=== PATIENT | male | born 1975 | race African-American/Black ===

== ENCOUNTER 2018-12-01 11:38 | Inpatient (IN) | payer OTHER ==
[2018-12-01 13:32] VITALS: BMI 31.4
--- NOTE | 2018-12-01 15:23 | HP ---
CIWA Score Nausea/Vomitin Muscle Tremors: 2 Anxiety: 2 Agitation: 2 Paroxysmal Sweats: 1-Minimal Palms Moist Orientation: 0-Oriented Tacttile Disturbances: 1-Very Mild Itch/Numbness Auditory Disturbances: 1-Very Mild Visual Disturbances: 0-None Headache: 2-Mild CIWA-Ar Total Score: 13 - Admission Criteria OASAS Guidelines: Admission for Medically Managed Detox: Requires at least one of the followin. CIWA greater than 12 2. Seizures within the past 24 hours 3. Delirium tremens within the past 24 hours 4. Hallucinations within the past 24 hours 5. Acute intervention needed for co occurring medical disorder 6. Acute intervention needed for co occurring psychiatric disorder 7. Severe withdrawal that cannot be handled at a lower level of care (continued vomiting, continued diarrhea, abnormal vital signs) requiring intravenous medication and/or fluids 8. Admission ROS S - HPI Chief Complaint: i need help to stop drinking alcohol,cocaine,marijuana and heroin abused Allergies/Adverse Reactions: Allergies Allergy/AdvReac Type Severity Reaction Status Date / Time No Known Allergies Allergy Verified 12/01/18 13:21 History of Present Illness: this 43 years old male with alcohol,cocaine,marijuana dependence,heroin abused, seeking detox,withdrawal symptom, had previous admission in detox,last [facility] in 02/23 but keep relapsing syncope nicotine dependence 1 pack/day,does not want nicotine replacement longest sobriety 4 years plan to go to rehab after detox history of hiv since 1996 and gerd - Ebola screening Have you traveled outside of the country in the last 21 days: No Have you had contact with anyone from an Ebola affected area: No - Review of Systems Constitutional: Chills, Loss of Appetite, Malaise, Night Sweats, Changes in sleep EENT: reports: Tearing, Nose Congestion Respiratory: reports: No Symptoms reported Cardiac: reports: No Symptoms Reported GI: reports: Nausea, Poor Appetite, Abdominal cramping : reports: No Symptoms Reported Musculoskeletal: reports: Back Pain, Muscle Pain Integumentary: reports: Dryness Neuro: reports: Headache, Tremors Endocrine: reports: No Symptoms Reported Hematology: reports: No Symptoms Reported Psychiatric: reports: No Sypmtoms Reported, Judgement Intact, Mood/Affect Appropiate, Orientated x3 Other Systems: Reviewed and Negative Patient History - Patient Medical History Hx Anemia: No Hx Asthma: No Hx Chronic Obstructive Pulmonary Disease (COPD): No Hx Cancer: No Hx Cardiac Disorders: No Hx Congestive Heart Failure: No Hx Hypertension: No Hx Hypercholesterolemia: No Hx Pacemaker: No HX Cerebrovascular Accident: No Hx Seizures: No Hx Dementia: No Hx Diabetes: No Hx Gastrointestinal Disorders: Yes (gerd) Hx Liver Disease: No Hx Genitourinary Disorders: No Hx Sexually Transmitted Disorders: No Hx Renal Disease (ESRD): No Hx Thyroid Disease: No Hx Human Immunodeficiency Virus (HIV): Yes (since 1996) Hx Hepatitis C: No Hx Depression: No Hx Suicide Attempt: No Hx Bipolar Disorder: No Hx Schizophrenia: No Other Medical History: no sicidal,no homicidal - Patient Surgical History Hx Appendectomy: Yes (in 1994) Hx Cholecystectomy: No Hx Genitourinary Surgery: No Hx Section: No Hx Orthopedic Surgery: No Hx Hysterectomy: No Anesthesia Reaction: No - PPD History Previous Implant?: Yes Documented Results: Negative w/o proof Implanted On Prior [facility] Admission?: No PPD to be Administered?: Yes - Smoking Cessation Smoking history: Current every day smoker Have you smoked in the past 12 months: Yes Aproximately how many cigarettes per day: 10 Cigars Per Day: 0 Hx Chewing Tobacco Use: No Initiated information on smoking cessation: Yes 'Breaking Loose' booklet given: 12/01/18 - Substance & Tx. History Hx Alcohol Use: Yes Hx Substance Use: Yes Substance Use Type: Alcohol, Cocaine, Heroin, Marijuana Hx Substance Use Treatment: Yes ([facility] 02/23) - Substances abused Alcohol Substance route: Oral Frequency: Daily Amount used: 1 pint of vodka, 3 of 40 ozs of beer [place] Age of first use: 21 Date of last use: 12/01/18 Heroin Substance route: Injection Frequency: 3-6 times per week Amount used: 4-5 bags Age of first use: 28 Date of last use: 11/30/18 Crack Substance route: Smoking Frequency: Daily Amount used: $100-200 Age of first use: 25 Date of last use: 12/01/18 Marijuana/Hashish Substance route: Smoking Frequency: Daily Amount used: 2 nickel bags Age of first use: 21 Date of last use: 11/30/18 Family Disease History - Family Disease History Family History: Denies Admission Physical Exam BHS - Vital Signs Vital Signs: Vital Signs - 24 hr 12/01/18 13:20 Temperature 98.4 F Pulse Rate 94 H Respiratory 18 Rate Blood Pressure 136/74 - Physical General Appearance: Yes: Moderate Distress, Tremorous, Irritable, Sweating, Anxious HEENTM: Yes: Normal ENT Inspection, BRAD, Pharynx Normal Respiratory: Yes: Lungs Clear, Normal Breath Sounds, No Respiratory Distress Neck: Yes: Within Normal Limits, Supple, Trachea in good position Breast: Yes: Within Normal Limits Cardiology: Yes: Within Normal Limits, Regular Rhythm, Regular Rate, S1, S2 Abdominal: Yes: Within Normal Limits, Normal Bowel Sounds, Non Tender, Flat Genitourinary: Yes: Within Normal Limits Musculoskeletal: Yes: full range of Motion, Back pain, Muscle Pain Extremities: Yes: Tremors Neurological: Yes: reporting coordinator II-XII NML intact, Fully Oriented, Alert, Motor Strength 5/5 Integumentary: Yes: Dry Lymphatic: Yes: Within Normal Limits - Diagnostic (1) Alcohol dependence with uncomplicated withdrawal Current Visit: Yes Status: Acute (2) Cocaine dependence Current Visit: Yes Status: Acute (3) Cannabis abuse Current Visit: Yes Status: Acute (4) Heroin abuse Current Visit: Yes Status: Acute (5) Nicotine dependence Current Visit: Yes Status: Acute (6) Dehydration Current Visit: Yes Status: Acute (7) Weight loss Current Visit: Yes Status: Acute (8) HIV (human immunodeficiency virus infection) Current Visit: Yes Status: Acute (9) Syncope Current Visit: Yes Status: Acute Cleared for Admission S - Detox or Rehab [facility] Level of Care: Medically Managed Detox Regimen/Protocol: [employer] Word Urine Drug Screen - Test Device Lot number: [id number] - Control Is test valid?: Yes - Results Drug screen NEGATIVE: No Urine drug screen results: THC-Marijuana, FAN-Cocaine Inpatient Rehab Admission - Rehab Decision to Admit Inpatient rehab admission?: No
[2018-12-01] MEDS ORDERED: MELATONIN 5 MG TABLETS PO PRN (15:39)
[2018-12-01] MEDS ORDERED: MAGNESIUM HYDROX 2400MG/30ML ORAL SUSPENSION 30 ML CUP PO PRN (15:39)
[2018-12-01] MEDS ORDERED: MAG HYDROX/AL HYDROX/SIMETH 30 ML UNIT-DOSE CUP PO PRN (15:39)
[2018-12-01] MEDS ORDERED: ACETAMINOPHEN 325 MG TABLET (FP) PO PRN ×2 (15:39)
[2018-12-01] MEDS ORDERED: MAGNESIUM CITRATE 300 ML BOTTLE PO PRN (15:39)
[2018-12-01] MEDS ORDERED: MENTHOL/PHENOL 1 EACH UD MM PRN (15:39)
[2018-12-01] MEDS ORDERED: hydrOXYzine PAMOATE 25 MG CAPSULE (FP) PO PRN (15:39)
[2018-12-01] MEDS ORDERED: chlordiazePOXIDE HCL 25 MG CAPSULE PO PRN (15:39)
[2018-12-01] MEDS ORDERED: METHOCARBAMOL 500 MG TABLET PO PRN (15:39)
[2018-12-01] MEDS ORDERED: IBUPROFEN 400 MG TABLET (FP) PO PRN (15:39)
[2018-12-01] MEDS ORDERED: BISMUTH SUBSALICYLATE 524 MG/30 ML UD PO PRN (15:39)
[2018-12-01] MEDS ORDERED: TUBERCULIN PPD 5 TU/0.1ML VIAL ID ONE (16:42)
[2018-12-01] MEDS: THIAMINE HCL 100 MG TABLET (FP) PO SCH (22:07)
[2018-12-01] MEDS: chlordiazePOXIDE HCL 25 MG CAPSULE PO SCH (22:07)
[2018-12-01 22:24] LABS: URINE APPEARANCE CLEAR; URINE BILIRUBIN NEGATIVE (NEGATIVE); URINE COLOR YELLOW; URINE GLUCOSE (UA) NEGATIVE (NEGATIVE); URINE KETONE TRACE (NEGATIVE); URINE LEUK ESTERASE NEGATIVE (NEGATIVE); URINE NITRITE NEGATIVE (NEGATIVE); URINE PROTEIN NEGATIVE (NEGATIVE)
[2018-12-02] MEDS: chlordiazePOXIDE HCL 25 MG CAPSULE PO SCH ×4 (05:29→22:12)
[2018-12-02] MEDS: PANTOPRAZOLE 20 MG TABLET (FP) PO SCH (10:26)
[2018-12-02] MEDS: PRENATAL VITAMINS W/ FOLIC ACID TABLET (FP) PO SCH (10:26)
[2018-12-02 11:02] LABS: HEMATOCRIT 41.5 % (35.4-49); MCH 30.2 pg (25.7-33.7); MCHC 33.8 g/dl (32.0-35.9); MEAN CELL VOLUME 89.6 fl (80-96); MEAN PLT VOLUME 8.2 fl (7.5-11.1); PLATELET COUNT 240 K/MM3 (134-434); RBC 4.63 M/mm3 (4.00-5.60); WHITE BLOOD COUNT 4.8 K/mm3 (4.0-10.0)
[2018-12-02 11:03] LABS: ALBUMIN 4.4 g/dl (3.4-5.0); BILIRUBIN,TOTAL 1.3 mg/dL (0.2-1); BLOOD UREA NITROGEN 8.3 mg/dL (7-18); CALCIUM 9.1 mg/dL (8.5-10.1); CREATININE 1.3 mg/dL (0.55-1.3); POTASSIUM 4.1 mmol/L (3.5-5.1); TOT PROT 8.4 g/dl (6.4-8.2)
[2018-12-02 11:15] LABS: SICKLE CELL SCREEN POSITIVE (NEGATIVE)
--- NOTE | 2018-12-02 13:41 | EKG ---
Test Reason : Blood Pressure : / mmHG Vent. Rate : 071 BPM Atrial Rate : 071 BPM P-R Int : 162 ms QRS Dur : 088 ms QT Int : 410 ms P-R-T Axes : 069 052 034 degrees QTc Int : 445 ms NORMAL SINUS RHYTHM NORMAL ECG NO PREVIOUS ECGS AVAILABLE Confirmed by RAFI JORDAN MD ([id number]) on 12/02/2018 1:41:36 PM Referred By: Confirmed By:RAFI JORDAN MD
--- NOTE | 2018-12-02 13:52 | PN ---
S CIWA - CIWA Score Nausea/Vomitin Muscle Tremors: 2 Anxiety: 3 Agitation: 2 Paroxysmal Sweats: 1-Minimal Palms Moist Orientation: 0-Oriented Tacttile Disturbances: 1-Very Mild Itch/Numbness Auditory Disturbances: 1-Very Mild Visual Disturbances: 0-None Headache: 2-Mild CIWA-Ar Total Score: 14 BHS Progress Note (SOAP) Subjective: alert,irritable,anxious,interrupted sleep,tremor,pain in the body Objective: 12/02/18 13:50 Vital Signs Temperature 97.1 F L 12/02/18 13:05 Pulse Rate 76 12/02/18 13:05 Respiratory Rate 18 12/02/18 13:05 Blood Pressure 102/62 12/02/18 13:05 O2 Sat by Pulse Oximetry (%) Laboratory Last Values WBC 4.8 K/mm3 (4.0-10.0) 12/02/18 06:00 RBC 4.63 M/mm3 (4.00-5.60) 12/02/18 06:00 Hgb 14.0 GM/dL (11.7-16.9) 12/02/18 06:00 Hct 41.5 % (35.4-49) 12/02/18 06:00 MCV 89.6 fl (80-96) 12/02/18 06:00 MCH 30.2 pg (25.7-33.7) 12/02/18 06:00 MCHC 33.8 g/dl (32.0-35.9) 12/02/18 06:00 RDW 15.0 % (11.9-15.9) 12/02/18 06:00 Plt Count 240 K/MM3 (134-434) 12/02/18 06:00 MPV 8.2 fl (7.5-11.1) 12/02/18 06:00 Sickle Cell Screen Positive (NEGATIVE) 12/02/18 06:00 Sodium 140 mmol/L (136-145) 12/02/18 06:00 Potassium 4.1 mmol/L (3.5-5.1) 12/02/18 06:00 Chloride 105 mmol/L (98-107) 12/02/18 06:00 Carbon Dioxide 28 mmol/L (21-32) 12/02/18 06:00 Anion Gap 7 MMOL/L (8-16) L 12/02/18 06:00 BUN 8.3 mg/dL (7-18) 12/02/18 06:00 Creatinine 1.3 mg/dL (0.55-1.3) 12/02/18 06:00 Est GFR (CKD-EPI)AfAm 78.55 12/02/18 06:00 Est GFR (CKD-EPI)NonAf 67.77 12/02/18 06:00 Random Glucose 75 mg/dL (74-106) 12/02/18 06:00 Calcium 9.1 mg/dL (8.5-10.1) 12/02/18 06:00 Total Bilirubin 1.3 mg/dL (0.2-1) H 12/02/18 06:00 AST 37 U/L (15-37) 12/02/18 06:00 ALT 30 U/L (13-61) 12/02/18 06:00 Alkaline Phosphatase 77 U/L (45-117) 12/02/18 06:00 Total Protein 8.4 g/dl (6.4-8.2) H 12/02/18 06:00 Albumin 4.4 g/dl (3.4-5.0) 12/02/18 06:00 Urine Color Yellow 12/01/18 20:47 Urine Appearance Clear 12/01/18 20:47 Urine pH 6.0 (5.0-8.0) 12/01/18 20:47 Ur Specific [place] 1.016 (1.010-1.035) 12/01/18 20:47 Urine Protein Negative (NEGATIVE) 12/01/18 20:47 Urine Glucose (UA) Negative (NEGATIVE) 12/01/18 20:47 Urine Ketones Trace (NEGATIVE) H 12/01/18 20:47 Urine Blood Negative (NEGATIVE) 12/01/18 20:47 Urine Nitrite Negative (NEGATIVE) 12/01/18 20:47 Urine Bilirubin Negative (NEGATIVE) 12/01/18 20:47 Urine Urobilinogen 1.0 mg/dL (0.2-1.0) 12/01/18 20:47 Ur Leukocyte Esterase Negative (NEGATIVE) 12/01/18 20:47 U Pathogenic Cast Auto No Result Required. 12/01/18 20:47 RPR Titer Nonreactive (NONREACTIVE) 12/02/18 06:00 Assessment: 12/02/18 13:51 withdrawal symptom Plan: continue detox
[2018-12-02] MEDS: THIAMINE HCL 100 MG TABLET (FP) PO SCH (22:12)
[2018-12-03] MEDS: chlordiazePOXIDE HCL 25 MG CAPSULE PO SCH ×3 (06:04→17:11)
[2018-12-03] MEDS: PANTOPRAZOLE 20 MG TABLET (FP) PO SCH (10:26)
[2018-12-03] MEDS: PRENATAL VITAMINS W/ FOLIC ACID TABLET (FP) PO SCH (10:26)
--- NOTE | 2018-12-03 13:42 | PN ---
BHS CIWA - CIWA Score Nausea/Vomitin Muscle Tremors: 2 Anxiety: 2 Agitation: 2 Paroxysmal Sweats: No Perspiration Orientation: 0-Oriented Tacttile Disturbances: 1-Very Mild Itch/Numbness Auditory Disturbances: 1-Very Mild Visual Disturbances: 0-None Headache: 2-Mild CIWA-Ar Total Score: 12 BHS Progress Note (SOAP) Subjective: alert,irritable,anxious,interrupted sleep,tremor,pain in the body and back Objective: 12/03/18 13:39 Vital Signs Temperature 97.2 F L 12/03/18 06:48 Pulse Rate 67 12/03/18 06:48 Respiratory Rate 18 12/03/18 06:48 Blood Pressure 107/65 12/03/18 06:48 O2 Sat by Pulse Oximetry (%) Assessment: 12/03/18 13:40 withdrawal symptom Plan: continue detox
[2018-12-03] MEDS: chlordiazePOXIDE HCL 10 MG CAPSULE PO SCH (22:06)
[2018-12-03] MEDS: THIAMINE HCL 100 MG TABLET (FP) PO SCH (22:06)
[2018-12-03] MEDS ORDERED: chlordiazePOXIDE HCL 10 MG CAPSULE PO PRN (23:00)
[2018-12-04] MEDS: chlordiazePOXIDE HCL 10 MG CAPSULE PO SCH ×2 (05:57→10:48)
[2018-12-04] MEDS: PRENATAL VITAMINS W/ FOLIC ACID TABLET (FP) PO SCH (10:47)
[2018-12-04] MEDS: PANTOPRAZOLE 20 MG TABLET (FP) PO SCH (10:47)
--- NOTE | 2018-12-04 15:44 | PN ---
S CIWA - CIWA Score Nausea/Vomitin-No Nausea/No Vomiting Muscle Tremors: None Anxiety: 2 Agitation: 1-Slight > Activity Paroxysmal Sweats: No Perspiration Orientation: 0-Oriented Tacttile Disturbances: 1-Very Mild Itch/Numbness Auditory Disturbances: 2-Mild Harshness/Frighten Visual Disturbances: 2-Mild Sensitivity Headache: 0-None Present CIWA-Ar Total Score: 8 BHS Progress Note (SOAP) Subjective: Interrupted sleep, Body Aches. Objective: PATIENT A & O X 3, OBSERVED AMBULATING ON UNIT UNASSISTED. IN NO ACUTE DISTRESS. 12/04/18 15:43 Vital Signs Temperature 96.5 F L 12/04/18 13:43 Pulse Rate 88 12/04/18 13:43 Respiratory Rate 18 12/04/18 13:43 Blood Pressure 135/84 12/04/18 13:43 O2 Sat by Pulse Oximetry (%) Laboratory Tests 12/01/18 12/02/18 12/02/18 20:47 06:00 06:00 WBC 4.8 RBC 4.63 Hgb 14.0 Hct 41.5 MCV 89.6 MCH 30.2 MCHC 33.8 RDW 15.0 Plt Count 240 MPV 8.2 Sickle Cell Screen Positive Sodium 140 Potassium 4.1 Chloride 105 Carbon Dioxide 28 Anion Gap 7 L BUN 8.3 Creatinine 1.3 Est GFR (CKD-EPI)AfAm 78.55 Est GFR (CKD-EPI)NonAf 67.77 Random Glucose 75 Calcium 9.1 Total Bilirubin 1.3 H AST 37 ALT 30 Alkaline Phosphatase 77 Total Protein 8.4 H Albumin 4.4 Urine Color Yellow Urine Appearance Clear Urine pH 6.0 Ur Specific [place] 1.016 Urine Protein Negative Urine Glucose (UA) Negative Urine Ketones Trace H Urine Blood Negative Urine Nitrite Negative Urine Bilirubin Negative Urine Urobilinogen 1.0 Ur Leukocyte Esterase Negative U Pathogenic Cast Auto No Result Required. RPR Titer 12/02/18 06:00 WBC RBC Hgb Hct MCV MCH MCHC RDW Plt Count MPV Sickle Cell Screen Sodium Potassium Chloride Carbon Dioxide Anion Gap BUN Creatinine Est GFR (CKD-EPI)AfAm Est GFR (CKD-EPI)NonAf Random Glucose Calcium Total Bilirubin AST ALT Alkaline Phosphatase Total Protein Albumin Urine Color Urine Appearance Urine pH Ur Specific [place] Urine Protein Urine Glucose (UA) Urine Ketones Urine Blood Urine Nitrite Urine Bilirubin Urine Urobilinogen Ur Leukocyte Esterase U Pathogenic Cast Auto RPR Titer Nonreactive LABS NOTED. Assessment: 12/04/18 15:44 WITHDRAWAL SYMPTOMS. 12/04/18 16:19 Plan: CONTINUE DETOX. PATIENT MADE AWARE OF POSITIVE SICKLE CELL RESULT. PATIENT DENIES KNOWN HISTORY OF SICKLE CELL TRAIT / DISEASE, BUT BELIEVES THAT HIS FATHER MAY HAVE HAD THE TRAIT? PATIENT ADVISED TO FOLLOW-UP WITH PROCESS COORDINATOR AFTER DISCHARGE FORM DETOX UNIT FOR FURTHER EVALUATION. PATIENT VERBALIZED UNDERSTANDING OF RECOMMENDATION. COPIES OF RESULTS OF ALL LABS DRAWN WHILE ADMITTED FOR DETOX WILL BE GIVEN TO PATIENT AT TIME OF DISCHARGE FROM DETOX UNIT.
--- NOTE | 2018-12-04 17:25 | DS ---
[facility] Detox Discharge Summary Admission Date: 12/01/18 Discharge Date: 12/04/18 - History Present History: Alcohol Dependence, Cannabis Dependence, Cocaine Dependence, Opioid Dependence Pertinent Past History: HIV+, GERD and seasonal allergies - Physical Exam Results Vital Signs: Vital Signs Temperature 96.5 F L 12/04/18 13:43 Pulse Rate 88 12/04/18 13:43 Respiratory Rate 18 12/04/18 13:43 Blood Pressure 135/84 12/04/18 13:43 O2 Sat by Pulse Oximetry (%) Pertinent Admission Physical Exam Findings: Withdrawal sx Laboratory Last Values WBC 4.8 K/mm3 (4.0-10.0) 12/02/18 06:00 RBC 4.63 M/mm3 (4.00-5.60) 12/02/18 06:00 Hgb 14.0 GM/dL (11.7-16.9) 12/02/18 06:00 Hct 41.5 % (35.4-49) 12/02/18 06:00 MCV 89.6 fl (80-96) 12/02/18 06:00 MCH 30.2 pg (25.7-33.7) 12/02/18 06:00 MCHC 33.8 g/dl (32.0-35.9) 12/02/18 06:00 RDW 15.0 % (11.9-15.9) 12/02/18 06:00 Plt Count 240 K/MM3 (134-434) 12/02/18 06:00 MPV 8.2 fl (7.5-11.1) 12/02/18 06:00 Sickle Cell Screen Positive (NEGATIVE) 12/02/18 06:00 Sodium 140 mmol/L (136-145) 12/02/18 06:00 Potassium 4.1 mmol/L (3.5-5.1) 12/02/18 06:00 Chloride 105 mmol/L (98-107) 12/02/18 06:00 Carbon Dioxide 28 mmol/L (21-32) 12/02/18 06:00 Anion Gap 7 MMOL/L (8-16) L 12/02/18 06:00 BUN 8.3 mg/dL (7-18) 12/02/18 06:00 Creatinine 1.3 mg/dL (0.55-1.3) 12/02/18 06:00 Est GFR (CKD-EPI)AfAm 78.55 12/02/18 06:00 Est GFR (CKD-EPI)NonAf 67.77 12/02/18 06:00 Random Glucose 75 mg/dL (74-106) 12/02/18 06:00 Calcium 9.1 mg/dL (8.5-10.1) 12/02/18 06:00 Total Bilirubin 1.3 mg/dL (0.2-1) H 12/02/18 06:00 AST 37 U/L (15-37) 12/02/18 06:00 ALT 30 U/L (13-61) 12/02/18 06:00 Alkaline Phosphatase 77 U/L (45-117) 12/02/18 06:00 Total Protein 8.4 g/dl (6.4-8.2) H 12/02/18 06:00 Albumin 4.4 g/dl (3.4-5.0) 12/02/18 06:00 Urine Color Yellow 12/01/18 20:47 Urine Appearance Clear 12/01/18 20:47 Urine pH 6.0 (5.0-8.0) 12/01/18 20:47 Ur Specific [place] 1.016 (1.010-1.035) 12/01/18 20:47 Urine Protein Negative (NEGATIVE) 12/01/18 20:47 Urine Glucose (UA) Negative (NEGATIVE) 12/01/18 20:47 Urine Ketones Trace (NEGATIVE) H 12/01/18 20:47 Urine Blood Negative (NEGATIVE) 12/01/18 20:47 Urine Nitrite Negative (NEGATIVE) 12/01/18 20:47 Urine Bilirubin Negative (NEGATIVE) 12/01/18 20:47 Urine Urobilinogen 1.0 mg/dL (0.2-1.0) 12/01/18 20:47 Ur Leukocyte Esterase Negative (NEGATIVE) 12/01/18 20:47 U Pathogenic Cast Auto No Result Required. 12/01/18 20:47 RPR Titer Nonreactive (NONREACTIVE) 12/02/18 06:00 - Treatment Hospital Course: Detox Protocol Followed, Detoxed Safely, Responded well, Discharged Condition Good - Medication Discharge Medications: Ambulatory Orders Elviteg/Cob/Emtri/Tenof Alafen [Genvoya Tablet] 1 each PO DAILY 12/01/18 Fexofenadine HCl [Emerald Allergy] 180 mg PO DAILY 12/01/18 Omeprazole 40 mg PO DAILY 12/01/18 - AMA Did Patient Leave Against Medical Advice: No (Early d/c as per pt's request so not to lose his [facility] accom[facility]ation)
[2018-12-04 18:14] VITALS: BP 134/87; PULSE 97; TEMP 98
[2018-12-04] MEDS ORDERED: chlordiazePOXIDE HCL 10 MG CAPSULE PO SCH (23:00)
[2018-12-07 14:09] LABS: HGB SOLUBILITY Positive (Negative); Hgb C 0 % (0.0); Hgb F 0 % (0.0-2.0); Hgb S 37.8 % (0.0)
== END 2018-12-04 17:21 | disposition home or self-care (01) | DRG 897 ==
LOC: YASAS 11:38 → Y3N 15:30
PROVIDERS: ADMIT Surgery; ATTEND Surgery
PROC: HZ2ZZZZ Detoxification Services for Substance Abuse Treatment (ICD-10-PCS; principal; 2018-12-01)
DX: F10.230 Alcohol dependence with withdrawal, uncomplicated (principal); F14.20 Cocaine dependence, uncomplicated; F11.10 Opioid abuse, uncomplicated; F12.20 Cannabis dependence, uncomplicated; F17.210 Nicotine dependence, cigarettes, uncomplicated; E86.0 Dehydration; R63.4 Abnormal weight loss; Z21 Asymptomatic human immunodeficiency virus [HIV] infection status; K21.9 Gastro-esophageal reflux disease without esophagitis
CPT/HCPCS: 36415; 80053; 81003; 83021; 85027; 85660; 86593; 93005; 93010

== ENCOUNTER 2019-04-14 10:31 | Inpatient (IN) | payer OTHER ==
[2019-04-14 11:02] VITALS: BMI 31.6
--- NOTE | 2019-04-14 11:35 | HP ---
"CIWA Score Nausea/Vomitin Muscle Tremors: 4-Moderate,w/Arms Extend Anxiety: 4-Mod. Anxious/Guarded Agitation: 4-Moderately Restless Paroxysmal Sweats: 2 Orientation: 0-Oriented Tacttile Disturbances: 0-None Auditory Disturbances: 0-None Visual Disturbances: 2-Mild Sensitivity Headache: 0-None Present CIWA-Ar Total Score: 18 - Admission Criteria OASAS Guidelines: Admission for Medically Managed Detox: Requires at least one of the followin. CIWA greater than 12 2. Seizures within the past 24 hours 3. Delirium tremens within the past 24 hours 4. Hallucinations within the past 24 hours 5. Acute intervention needed for co occurring medical disorder 6. Acute intervention needed for co occurring psychiatric disorder 7. Severe withdrawal that cannot be handled at a lower level of care (continued vomiting, continued diarrhea, abnormal vital signs) requiring intravenous medication and/or fluids 8. Admitting History and Physical - Smoking History Smoking history: Current every day smoker Have you smoked in the past 12 months: Yes Aproximately how many cigarettes per day: 10 - Alcohol/Substance Use Hx Alcohol Use: Yes Admission ROS [facility] Allergies/Adverse Reactions: Allergies Allergy/AdvReac Type Severity Reaction Status Date / Time No Known Allergies Allergy Verified 04/14/19 10:57 History of Present Illness: pt here requesting detox from etoh use , reports 1 pint liquor/day x 20 years, latest use yesterday , + blackouts, denies seizures , + tremors . 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 , then @ [employer] This report was requested by: Jamila Vann | Reference #: [id number] Others' Prescriptions Patient Name: Bimal Herndon Date: 1975 Address: [place] [address] Sex: Male Rx Written Rx Dispensed Drug Quantity Days Supply Prescriber Name 05/18/2018 05/20/2018 chlordiazepoxide 25 mg capsule 8 2 Jose Hardin Patient Name: Bimal Herndon Date: 1975 Address: [address] [place] [id number] Sex: Male Rx Written Rx Dispensed Drug Quantity Days Supply Prescriber Name 04/20/2018 04/20/2018 oxycodone hcl 5 mg tablet 8 2 Kike Chow MD Patient Name: Bimal Herndon Date: 1975 Address: [address] [place] [id number] Sex: Male Rx Written Rx Dispensed Drug Quantity Days Supply Prescriber Name 04/17/2018 04/17/2018 oxycodone-acetaminophen 5-325 mg tablet 4 2 Nasr, Larry Exam Limitations: Clinical Condition - Ebola screening Have you traveled outside of the country in the last 21 days: No Have you had contact with anyone from an Ebola affected area: No Do you have a fever: No - Review of Systems Constitutional: Loss of Appetite EENT: reports: Other (glasses) Respiratory: reports: No Symptoms reported Cardiac: reports: No Symptoms Reported GI: reports: Diarrhea, Nausea, Poor Appetite, Vomiting : reports: Other (hesitancy) Musculoskeletal: reports: Joint Pain Integumentary: reports: See HPI Neuro: reports: See HPI, Tremors Endocrine: reports: No Symptoms Reported Psychiatric: reports: Orientated x3, Agitated, Anxious Patient History - Patient Medical History Hx Anemia: No Hx Asthma: No Hx Chronic Obstructive Pulmonary Disease (COPD): No Hx Cancer: No Hx Cardiac Disorders: No Hx Congestive Heart Failure: No Hx Hypertension: No Hx Hypercholesterolemia: No Hx Pacemaker: No HX Cerebrovascular Accident: No Hx Seizures: No Hx Dementia: No Hx Diabetes: No Hx Gastrointestinal Disorders: Yes (gerd) Hx Liver Disease: No Hx Genitourinary Disorders: No Hx Sexually Transmitted Disorders: No Hx Renal Disease (ESRD): No Hx Thyroid Disease: No Hx Human Immunodeficiency Virus (HIV): Yes (since 1996) Hx Hepatitis C: No Hx Depression: No Hx Suicide Attempt: No Hx Bipolar Disorder: No Hx Schizophrenia: No - Patient Surgical History Hx Appendectomy: Yes (in 1994) Hx Cholecystectomy: No Hx Genitourinary Surgery: No Hx Section: No Hx Orthopedic Surgery: No Hx Hysterectomy: No Anesthesia Reaction: No - PPD History Date: 12/03/18 - Smoking Cessation Smoking history: Current every day smoker Have you smoked in the past 12 months: Yes Aproximately how many cigarettes per day: 10 Cigars Per Day: 0 Hx Chewing Tobacco Use: No Initiated information on smoking cessation: Yes 'Breaking Loose' booklet given: 04/14/19 - Substances abused Alcohol Substance route: Oral Frequency: Daily Amount used: 1 pint of vodka Age of first use: 21 Date of last use: 04/14/19 Heroin Substance route: Injection Frequency: 3-6 times per week Amount used: 5 bags Age of first use: 28 Date of last use: 04/11/19 Crack Substance route: Smoking Frequency: Daily Amount used: $300-$400 Age of first use: 25 Date of last use: 04/14/19 Marijuana/Hashish Substance route: Smoking Frequency: 1-2 times per week Amount used: dime bags Age of first use: 21 Date of last use: 04/07/19 Admission Physical Exam S - Vital Signs Vital Signs: Vital Signs - 24 hr 04/14/19 10:57 Temperature 96.4 F L Pulse Rate 83 Respiratory 20 Rate Blood Pressure 133/87 - Physical General Appearance: Yes: Moderate Distress, Tremorous, Anxious HEENTM: Yes: EOMI, Hearing grossly Normal, Normocephalic, Normal Voice Respiratory: Yes: Chest Non-Tender, Lungs Clear, Normal Breath Sounds, No Respiratory Distress, No Accessory Muscle Use Neck: Yes: No masses,lesions,Nodules, Trachea in good position Cardiology: Yes: Regular Rhythm, Regular Rate, S1, S2 Abdominal: Yes: Non Tender, Soft Musculoskeletal: Yes: full range of Motion, Gait Steady Extremities: Yes: Normal Range of Motion, Non-Tender, Tremors Neurological: Yes: Alert, Motor Strength 5/5, Normal Mood/Affect Integumentary: Yes: Warm - Diagnostic (1) Alcohol dependence with uncomplicated withdrawal Current Visit: Yes Status: Chronic (2) Cocaine dependence Current Visit: Yes Status: Chronic (3) Nicotine dependence Current Visit: Yes Status: Chronic Qualifiers: Nicotine product type: cigarettes Breathalyzer - Breathalyzer Breathalyzer: 0 Urine Drug Screen - Test Device Lot number: [id number] Expiration date: 12/05/20 - Control Is test valid?: Yes - Results Drug screen NEGATIVE: No Urine drug screen results: FAN-Cocaine Inpatient Rehab Admission - Rehab Decision to Admit Inpatient rehab admission?: No"
[2019-04-14] MEDS ORDERED: MENTHOL/PHENOL 1 EACH UD MM PRN (11:47)
[2019-04-14] MEDS ORDERED: BISMUTH SUBSALICYLATE 262 MG/15 ML BTL PO PRN (11:47)
[2019-04-14] MEDS ORDERED: ONDANSETRON *ODT* 4 MG TABLET SL PRN (11:47)
[2019-04-14] MEDS ORDERED: MAGNESIUM CITRATE 300 ML BOTTLE PO PRN (11:47)
[2019-04-14] MEDS ORDERED: ACETAMINOPHEN 325 MG TABLET (FP) PO PRN ×2 (11:47)
[2019-04-14] MEDS ORDERED: chlordiazePOXIDE HCL 25 MG CAPSULE PO PRN (11:49)
[2019-04-14] MEDS: PANTOPRAZOLE 40 MG TABLET (FP) PO SCH (12:41)
[2019-04-14] MEDS: chlordiazePOXIDE HCL 25 MG CAPSULE PO SCH ×3 (12:41→22:53)
[2019-04-14] MEDS: ELVITEG/COB/EMTRI/TENOF (GENVOYA) TABLET (NF) PO SCH (13:00)
[2019-04-14] MEDS: THIAMINE HCL 100 MG TABLET (FP) PO SCH (22:54)
[2019-04-15] MEDS: chlordiazePOXIDE HCL 25 MG CAPSULE PO SCH ×4 (05:22→22:11)
[2019-04-15 09:56] LABS: HEMATOCRIT 36.8 % (35.4-49); HEMOGLOBIN 12.5 GM/dL (11.7-16.9); MCH 29.9 pg (25.7-33.7); MEAN CELL VOLUME 87.9 fl (80-96); MEAN PLT VOLUME 7.8 fl (7.5-11.1); PLATELET COUNT 216 K/MM3 (134-434); RBC 4.19 M/mm3 (4.00-5.60); RDW 14.5 % (11.9-15.9); WHITE BLOOD COUNT 2.4 K/mm3 (4.0-10.0)
[2019-04-15] MEDS: PRENATAL VITAMINS W/ FOLIC ACID TABLET (FP) PO SCH (10:43)
[2019-04-15] MEDS: PANTOPRAZOLE 40 MG TABLET (FP) PO SCH (10:43)
[2019-04-15] MEDS: ELVITEG/COB/EMTRI/TENOF (GENVOYA) TABLET (NF) PO SCH (11:00)
[2019-04-15 11:11] LABS: ALBUMIN 3.6 g/dl (3.4-5.0); BILIRUBIN,TOTAL 0.5 mg/dL (0.2-1); BLOOD UREA NITROGEN 7.7 mg/dL (7-18); CALCIUM 8.5 mg/dL (8.5-10.1); CREATININE 1.2 mg/dL (0.55-1.3); POTASSIUM 3.5 mmol/L (3.5-5.1); TOT PROT 6.7 g/dl (6.4-8.2)
[2019-04-15] MEDS ORDERED: FLU VACCINE QUAD 60 MCG/0.5 ML (MDV 19-20) IM ONE (12:00)
--- NOTE | 2019-04-15 12:25 | PN ---
S CIWA - CIWA Score Nausea/Vomitin-No Nausea/No Vomiting Muscle Tremors: 3 Anxiety: 3 Agitation: 3 Paroxysmal Sweats: 3 Orientation: 0-Oriented Tacttile Disturbances: 0-None Auditory Disturbances: 0-None Visual Disturbances: 0-None Headache: 0-None Present CIWA-Ar Total Score: 12 S Progress Note (SOAP) Subjective: sweats mild shakes interrupted sleep Objective: 04/15/19 12:34 Vital Signs Temperature 98.1 F 04/15/19 09:38 Pulse Rate 78 04/15/19 09:38 Respiratory Rate 18 04/15/19 09:38 Blood Pressure 97/67 04/15/19 09:38 O2 Sat by Pulse Oximetry (%) Laboratory Tests 04/15/19 04/15/19 04/15/19 08:00 08:00 08:00 WBC 2.4 L RBC 4.19 Hgb 12.5 Hct 36.8 MCV 87.9 MCH 29.9 MCHC 34.0 RDW 14.5 Plt Count 216 MPV 7.8 Sodium 140 Potassium 3.5 Chloride 105 Carbon Dioxide 28 Anion Gap 7 L BUN 7.7 Creatinine 1.2 Est GFR (CKD-EPI)AfAm 85.92 Est GFR (CKD-EPI)NonAf 74.14 Random Glucose 107 H Calcium 8.5 Total Bilirubin 0.5 AST 24 ALT 21 Alkaline Phosphatase 59 Total Protein 6.7 Albumin 3.6 RPR Titer Nonreactive labs noted aaox3 ambulating no acute distress Assessment: 04/15/19 12:35 withdrawals Plan: continue detox increase fluids
[2019-04-15] MEDS: THIAMINE HCL 100 MG TABLET (FP) PO SCH (22:11)
[2019-04-16] MEDS: chlordiazePOXIDE HCL 25 MG CAPSULE PO SCH ×4 (05:39→22:17)
[2019-04-16] MEDS: PRENATAL VITAMINS W/ FOLIC ACID TABLET (FP) PO SCH (10:44)
[2019-04-16] MEDS: PANTOPRAZOLE 40 MG TABLET (FP) PO SCH (10:44)
[2019-04-16] MEDS: ELVITEG/COB/EMTRI/TENOF (GENVOYA) TABLET (NF) PO SCH (10:45)
--- NOTE | 2019-04-16 11:46 | PN ---
S CIWA - CIWA Score Nausea/Vomitin-No Nausea/No Vomiting Muscle Tremors: 2 Anxiety: 2 Agitation: 3 Paroxysmal Sweats: 2 Orientation: 0-Oriented Tacttile Disturbances: 0-None Auditory Disturbances: 0-None Visual Disturbances: 0-None Headache: 0-None Present CIWA-Ar Total Score: 9 [facility] Progress Note (SOAP) Subjective: sweats mild shakes chills I need to see psych I have a history of depression Objective: 04/16/19 11:45 Vital Signs Temperature 97.3 F L 04/16/19 09:34 Pulse Rate 84 04/16/19 09:34 Respiratory Rate 18 04/16/19 09:34 Blood Pressure 100/53 L 04/16/19 09:34 O2 Sat by Pulse Oximetry (%) Laboratory Tests 04/15/19 04/15/19 04/15/19 08:00 08:00 08:00 WBC 2.4 L RBC 4.19 Hgb 12.5 Hct 36.8 MCV 87.9 MCH 29.9 MCHC 34.0 RDW 14.5 Plt Count 216 MPV 7.8 Sodium 140 Potassium 3.5 Chloride 105 Carbon Dioxide 28 Anion Gap 7 L BUN 7.7 Creatinine 1.2 Est GFR (CKD-EPI)AfAm 85.92 Est GFR (CKD-EPI)NonAf 74.14 Random Glucose 107 H Calcium 8.5 Total Bilirubin 0.5 AST 24 ALT 21 Alkaline Phosphatase 59 Total Protein 6.7 Albumin 3.6 RPR Titer Nonreactive labs noted aaox3 ambulating no acute distress Assessment: 04/16/19 11:45 withdrawal sx Plan: continue detox increase fluids psych consultation ordered
[2019-04-16] MEDS: MELATONIN 5 MG TABLETS PO PRN (22:17)
[2019-04-16] MEDS: THIAMINE HCL 100 MG TABLET (FP) PO SCH (22:17)
[2019-04-17] MEDS ORDERED: chlordiazePOXIDE HCL 10 MG CAPSULE PO PRN
[2019-04-17] MEDS: chlordiazePOXIDE HCL 10 MG CAPSULE PO SCH ×4 (05:41→22:30)
[2019-04-17] MEDS: PRENATAL VITAMINS W/ FOLIC ACID TABLET (FP) PO SCH (10:39)
[2019-04-17] MEDS: PANTOPRAZOLE 40 MG TABLET (FP) PO SCH (10:39)
[2019-04-17] MEDS: ELVITEG/COB/EMTRI/TENOF (GENVOYA) TABLET (NF) PO SCH (10:39)
[2019-04-17] MEDS: hydrOXYzine PAMOATE 25 MG CAPSULE (FP) PO PRN (11:15)
--- NOTE | 2019-04-17 13:35 | PN ---
S CIWA - CIWA Score Nausea/Vomitin-No Nausea/No Vomiting Muscle Tremors: 2 Anxiety: 2 Agitation: 1-Slight > Activity Paroxysmal Sweats: 2 Orientation: 0-Oriented Tacttile Disturbances: 0-None Auditory Disturbances: 0-None Visual Disturbances: 0-None Headache: 0-None Present CIWA-Ar Total Score: 7 BHS Progress Note (SOAP) Subjective: Body aches, interrupted sleep, chills, stomachache, light bothers eyes sometimes Objective: 04/17/19 13:33 Last Vital Signs Temp Pulse Resp BP Pulse Ox 98.1 F 88 16 105/69 04/17/19 09:34 04/17/19 09:34 04/17/19 09:34 04/17/19 09:34 Laboratory Tests 04/15/19 04/15/19 04/15/19 08:00 08:00 08:00 WBC 2.4 L RBC 4.19 Hgb 12.5 Hct 36.8 MCV 87.9 MCH 29.9 MCHC 34.0 RDW 14.5 Plt Count 216 MPV 7.8 Sodium 140 Potassium 3.5 Chloride 105 Carbon Dioxide 28 Anion Gap 7 L BUN 7.7 Creatinine 1.2 Est GFR (CKD-EPI)AfAm 85.92 Est GFR (CKD-EPI)NonAf 74.14 Random Glucose 107 H Calcium 8.5 Total Bilirubin 0.5 AST 24 ALT 21 Alkaline Phosphatase 59 Total Protein 6.7 Albumin 3.6 RPR Titer Nonreactive Labs reviewed Assessment: 04/17/19 13:34 Withdrawal sxs Plan: Continue detox Encouraged PO water intake
--- NOTE | 2019-04-17 16:06 | CONSULT ---
[facility] Psychiatric Consult - Data Date of interview: 04/17/19 Admission source: [facility] Identifying data: Reed Dipper approached patient for psychiatric consultation. Patient stated, " Not right now i'm tired. Maybe later or tomorrow. I'm fine just tired." Psychiatric consultation refused.
[2019-04-17] MEDS: THIAMINE HCL 100 MG TABLET (FP) PO SCH (22:30)
[2019-04-18] MEDS: chlordiazePOXIDE HCL 10 MG CAPSULE PO SCH ×2 (05:34→17:20)
[2019-04-18] MEDS: ELVITEG/COB/EMTRI/TENOF (GENVOYA) TABLET (NF) PO SCH (10:44)
[2019-04-18] MEDS: PANTOPRAZOLE 40 MG TABLET (FP) PO SCH (10:44)
[2019-04-18] MEDS: PRENATAL VITAMINS W/ FOLIC ACID TABLET (FP) PO SCH (10:44)
--- NOTE | 2019-04-18 12:01 | PN ---
S CIWA - CIWA Score Nausea/Vomitin-No Nausea/No Vomiting Muscle Tremors: 1-None Visible, but [place] Anxiety: 1-Mildly Anxious Agitation: 1-Slight > Activity Paroxysmal Sweats: No Perspiration Orientation: 0-Oriented Tacttile Disturbances: 1-Very Mild Itch/Numbness Auditory Disturbances: 0-None Visual Disturbances: 0-None Headache: 1-Very Mild CIWA-Ar Total Score: 5 BHS Progress Note (SOAP) Subjective: alert,irritable,interrupted sleep Objective: 04/18/19 12:00 Vital Signs Temperature 98.2 F 04/18/19 09:41 Pulse Rate 89 04/18/19 09:41 Respiratory Rate 18 04/18/19 09:41 Blood Pressure 101/69 04/18/19 09:41 O2 Sat by Pulse Oximetry (%) Assessment: 04/18/19 12:00 withdrawal symptom Plan: continue detox,discharge in am
[2019-04-18] MEDS: hydrOXYzine PAMOATE 25 MG CAPSULE (FP) PO PRN (19:14)
[2019-04-18] MEDS: MELATONIN 5 MG TABLETS PO PRN (22:39)
[2019-04-18] MEDS: THIAMINE HCL 100 MG TABLET (FP) PO SCH (22:39)
[2019-04-19] MEDS ORDERED: chlordiazePOXIDE HCL 10 MG CAPSULE PO ONE (05:00)
--- NOTE | 2019-04-19 09:17 | DS ---
[facility] Detox Discharge Summary Admission Date: 04/14/19 Discharge Date: 04/19/19 - History Present History: Alcohol Dependence, Cannabis Dependence, Cocaine Dependence - Physical Exam Results Vital Signs: Vital Signs Temperature 98.1 F 04/19/19 06:00 Pulse Rate 74 04/19/19 06:00 Respiratory Rate 20 04/19/19 06:00 Blood Pressure 115/66 04/19/19 06:00 O2 Sat by Pulse Oximetry (%) Pertinent Admission Physical Exam Findings: pt arrived in withdrawals Vital Signs Temperature 98.1 F 04/19/19 06:00 Pulse Rate 74 04/19/19 06:00 Respiratory Rate 20 04/19/19 06:00 Blood Pressure 115/66 04/19/19 06:00 O2 Sat by Pulse Oximetry (%) Laboratory Tests 04/15/19 04/15/19 04/15/19 08:00 08:00 08:00 WBC 2.4 L RBC 4.19 Hgb 12.5 Hct 36.8 MCV 87.9 MCH 29.9 MCHC 34.0 RDW 14.5 Plt Count 216 MPV 7.8 Sodium 140 Potassium 3.5 Chloride 105 Carbon Dioxide 28 Anion Gap 7 L BUN 7.7 Creatinine 1.2 Est GFR (CKD-EPI)AfAm 85.92 Est GFR (CKD-EPI)NonAf 74.14 Random Glucose 107 H Calcium 8.5 Total Bilirubin 0.5 AST 24 ALT 21 Alkaline Phosphatase 59 Total Protein 6.7 Albumin 3.6 RPR Titer Nonreactive today pt is aaox3 ambulating no acute distress no s/s of withdrawals - Treatment Hospital Course: Detox Protocol Followed, Detoxed Safely, Responded well, Discharged Condition Good, Rehab Referral Accepted Patient has Accepted a Rehab Referral to: pt referred to inpatient rehab - Medication Discharge Medications: Ambulatory Orders Elviteg/Cob/Emtri/Tenof Alafen [Genvoya Tablet] 1 each PO DAILY 12/01/18 Fexofenadine HCl [Emerald Allergy] 180 mg PO DAILY 12/01/18 Omeprazole 40 mg PO DAILY 12/01/18 - Diagnosis (1) Alcohol dependence with uncomplicated withdrawal Current Visit: Yes Status: Chronic (2) Cocaine dependence Current Visit: Yes Status: Chronic Qualifiers: Substance use status: uncomplicated Qualified Code(s): F14.20 - Cocaine dependence, uncomplicated (3) Nicotine dependence Current Visit: Yes Status: Chronic Qualifiers: Nicotine product type: cigarettes Substance use status: uncomplicated Qualified Code(s): F17.210 - Nicotine dependence, cigarettes, uncomplicated (4) Cannabis abuse Current Visit: Yes Status: Chronic (5) HIV (human immunodeficiency virus infection) Current Visit: Yes Status: Chronic Qualifiers: HIV symptom status: unspecified Qualified Code(s): B20 - Human immunodeficiency virus [HIV] disease (6) Syncope Current Visit: No Status: Acute - AMA Did Patient Leave Against Medical Advice: No
[2019-04-19] MEDS: PANTOPRAZOLE 40 MG TABLET (FP) PO SCH (10:15)
[2019-04-19] MEDS: PRENATAL VITAMINS W/ FOLIC ACID TABLET (FP) PO SCH (10:15)
[2019-04-19] MEDS: ELVITEG/COB/EMTRI/TENOF (GENVOYA) TABLET (NF) PO SCH (10:15)
[2019-04-19] MEDS: THIAMINE HCL 100 MG TABLET (FP) PO SCH (22:05)
[2019-04-20] MEDS: PRENATAL VITAMINS W/ FOLIC ACID TABLET (FP) PO SCH (10:26)
[2019-04-20] MEDS: ELVITEG/COB/EMTRI/TENOF (GENVOYA) TABLET (NF) PO SCH (10:26)
[2019-04-20] MEDS: PANTOPRAZOLE 40 MG TABLET (FP) PO SCH (10:26)
--- NOTE | 2019-04-20 10:26 | PN ---
[facility] Progress Note Note: Mr Herndon is a 44 y/o male admitted to rehab yesterday after completing detox on . As per admission H/P: Pt with hx of etoh use , reports 1 pint liquor/day x 20 years, + blackouts, denies seizures , + tremors . 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 Reports he has a Primary care provider Dr. Negin Romero at the location. Pt reports hx of Bipolar disorder and states takes Celexa and Risperdal has not been taking psych meds here but requesting for psych consult to day to restart medication. Vital Signs 04/20/19 04/20/19 03:30 07:26 Temperature 97.3 F L Pulse Rate 73 Respiratory 18 18 Rate Blood Pressure 114/74 Alert o x 3, mood stable,denies s/h/i nad oob ambulating with steady gait A/P s/p detox Psych consult ordered as requested.
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
[2019-04-20] MEDS: COLLOIDAL OATMEAL 1 BAR EACH TP PRN (14:39)
[2019-04-20] MEDS: THIAMINE HCL 100 MG TABLET (FP) PO SCH (22:39)
[2019-04-21] MEDS: PRENATAL VITAMINS W/ FOLIC ACID TABLET (FP) PO SCH (11:12)
[2019-04-21] MEDS: ELVITEG/COB/EMTRI/TENOF (GENVOYA) TABLET (NF) PO SCH (11:12)
[2019-04-21] MEDS: PANTOPRAZOLE 40 MG TABLET (FP) PO SCH (11:12)
[2019-04-21] MEDS: MAG HYDROX/AL HYDROX/SIMETH 30 ML UNIT-DOSE CUP PO PRN (18:18)
[2019-04-21] MEDS: THIAMINE HCL 100 MG TABLET (FP) PO SCH (22:03)
[2019-04-22] MEDS: PRENATAL VITAMINS W/ FOLIC ACID TABLET (FP) PO SCH (10:52)
[2019-04-22] MEDS: PANTOPRAZOLE 40 MG TABLET (FP) PO SCH (10:52)
[2019-04-22] MEDS: ELVITEG/COB/EMTRI/TENOF (GENVOYA) TABLET (NF) PO SCH (10:52)
[2019-04-22] MEDS: IBUPROFEN 400 MG TABLET (FP) PO PRN (16:50)
[2019-04-22] MEDS: THIAMINE HCL 100 MG TABLET (FP) PO SCH (22:53)
[2019-04-23] MEDS: PANTOPRAZOLE 40 MG TABLET (FP) PO SCH (10:55)
[2019-04-23] MEDS: PRENATAL VITAMINS W/ FOLIC ACID TABLET (FP) PO SCH (10:55)
[2019-04-23] MEDS: ELVITEG/COB/EMTRI/TENOF (GENVOYA) TABLET (NF) PO SCH (10:55)
[2019-04-23] MEDS: THIAMINE HCL 100 MG TABLET (FP) PO SCH (22:10)
[2019-04-24] MEDS: PANTOPRAZOLE 40 MG TABLET (FP) PO SCH (10:26)
[2019-04-24] MEDS: PRENATAL VITAMINS W/ FOLIC ACID TABLET (FP) PO SCH (10:26)
[2019-04-24] MEDS: ELVITEG/COB/EMTRI/TENOF (GENVOYA) TABLET (NF) PO SCH (10:27)
--- NOTE | 2019-04-24 12:44 | PN ---
[facility] Progress Note Note: Patient complains of feeling anxious. Vistaril 50 mg po Q 4hrs prn is ordered for patient
[2019-04-24] MEDS: hydrOXYzine PAMOATE 50 MG CAPSULE (FP) PO PRN (13:32)
[2019-04-24] MEDS: THIAMINE HCL 100 MG TABLET (FP) PO SCH (21:52)
[2019-04-25] MEDS: PANTOPRAZOLE 40 MG TABLET (FP) PO SCH (10:57)
[2019-04-25] MEDS: PRENATAL VITAMINS W/ FOLIC ACID TABLET (FP) PO SCH (10:57)
[2019-04-25] MEDS: ELVITEG/COB/EMTRI/TENOF (GENVOYA) TABLET (NF) PO SCH (10:57)
[2019-04-25] MEDS: THIAMINE HCL 100 MG TABLET (FP) PO SCH (21:33)
[2019-04-26] MEDS: PRENATAL VITAMINS W/ FOLIC ACID TABLET (FP) PO SCH (10:37)
[2019-04-26] MEDS: PANTOPRAZOLE 40 MG TABLET (FP) PO SCH (10:37)
[2019-04-26] MEDS: ELVITEG/COB/EMTRI/TENOF (GENVOYA) TABLET (NF) PO SCH (10:38)
[2019-04-26] MEDS: THIAMINE HCL 100 MG TABLET (FP) PO SCH (21:34)
[2019-04-27] MEDS: ELVITEG/COB/EMTRI/TENOF (GENVOYA) TABLET (NF) PO SCH (10:35)
[2019-04-27] MEDS: PANTOPRAZOLE 40 MG TABLET (FP) PO SCH (10:35)
[2019-04-27] MEDS: PRENATAL VITAMINS W/ FOLIC ACID TABLET (FP) PO SCH (10:35)
--- NOTE | 2019-04-27 12:41 | PN ---
[facility] Progress Note Note: Pt c/o itchy skin rash on chest and head. Hx of chronic Eczema. Requesting skinointment. Vital Signs - 24 hr 04/27/19 04/27/19 04/27/19 00:30 07:19 07:20 Temperature 97.7 F 97.7 F Pulse Rate 74 74 Respiratory 18 18 18 Rate Blood Pressure 116/58 L 116/58 L Skin:Mid chest with large area of lichenified thick and darkened skin. some patches of dark scaly skin on head. A/P Chronic Eczema Triamcinolone ointment 0.025% apply to affected areas BID continue aveeno soap
[2019-04-27] MEDS: hydrOXYzine PAMOATE 50 MG CAPSULE (FP) PO PRN (12:47)
[2019-04-27] MEDS: TRIAMCINOLONE ACET 0.025% OINTMENT 15 GM TUBE TP SCH ×2 (14:05→21:15)
[2019-04-27] MEDS: THIAMINE HCL 100 MG TABLET (FP) PO SCH (21:15)
[2019-04-28] MEDS: PRENATAL VITAMINS W/ FOLIC ACID TABLET (FP) PO SCH (10:40)
[2019-04-28] MEDS: ELVITEG/COB/EMTRI/TENOF (GENVOYA) TABLET (NF) PO SCH (10:40)
[2019-04-28] MEDS: PANTOPRAZOLE 40 MG TABLET (FP) PO SCH (10:40)
[2019-04-28] MEDS: TRIAMCINOLONE ACET 0.025% OINTMENT 15 GM TUBE TP SCH ×2 (10:41→21:21)
[2019-04-28] MEDS ORDERED: FLU VACCINE QUAD 60 MCG/0.5 ML (MDV 19-20) IM ONE (12:00)
[2019-04-28] MEDS: MAG HYDROX/AL HYDROX/SIMETH 30 ML UNIT-DOSE CUP PO PRN (14:59)
[2019-04-28] MEDS: THIAMINE HCL 100 MG TABLET (FP) PO SCH (21:21)
[2019-04-29] MEDS: COLLOIDAL OATMEAL 1 BAR EACH TP PRN (07:18)
[2019-04-29] MEDS: ELVITEG/COB/EMTRI/TENOF (GENVOYA) TABLET (NF) PO SCH (10:26)
[2019-04-29] MEDS: hydrOXYzine PAMOATE 50 MG CAPSULE (FP) PO PRN (10:26)
[2019-04-29] MEDS: TRIAMCINOLONE ACET 0.025% OINTMENT 15 GM TUBE TP SCH ×2 (10:26→21:44)
[2019-04-29] MEDS: PRENATAL VITAMINS W/ FOLIC ACID TABLET (FP) PO SCH (10:26)
[2019-04-29] MEDS: PANTOPRAZOLE 40 MG TABLET (FP) PO SCH (10:26)
[2019-04-29] MEDS: MAG HYDROX/AL HYDROX/SIMETH 30 ML UNIT-DOSE CUP PO PRN (16:38)
[2019-04-29] MEDS: THIAMINE HCL 100 MG TABLET (FP) PO SCH (21:44)
[2019-04-30] MEDS: PRENATAL VITAMINS W/ FOLIC ACID TABLET (FP) PO SCH (10:25)
[2019-04-30] MEDS: PANTOPRAZOLE 40 MG TABLET (FP) PO SCH (10:25)
[2019-04-30] MEDS: TRIAMCINOLONE ACET 0.025% OINTMENT 15 GM TUBE TP SCH ×2 (10:26→21:40)
[2019-04-30] MEDS: ELVITEG/COB/EMTRI/TENOF (GENVOYA) TABLET (NF) PO SCH (10:26)
[2019-04-30] MEDS: THIAMINE HCL 100 MG TABLET (FP) PO SCH (21:40)
[2019-05-01] MEDS: TRIAMCINOLONE ACET 0.025% OINTMENT 15 GM TUBE TP SCH ×2 (10:37→21:40)
[2019-05-01] MEDS: PRENATAL VITAMINS W/ FOLIC ACID TABLET (FP) PO SCH (10:37)
[2019-05-01] MEDS: ELVITEG/COB/EMTRI/TENOF (GENVOYA) TABLET (NF) PO SCH (10:37)
[2019-05-01] MEDS: PANTOPRAZOLE 40 MG TABLET (FP) PO SCH (10:37)
[2019-05-01] MEDS: hydrOXYzine PAMOATE 50 MG CAPSULE (FP) PO PRN (15:12)
[2019-05-01] MEDS: THIAMINE HCL 100 MG TABLET (FP) PO SCH (21:40)
[2019-05-02] MEDS: PANTOPRAZOLE 40 MG TABLET (FP) PO SCH (10:56)
[2019-05-02] MEDS: PRENATAL VITAMINS W/ FOLIC ACID TABLET (FP) PO SCH (10:56)
[2019-05-02] MEDS: ELVITEG/COB/EMTRI/TENOF (GENVOYA) TABLET (NF) PO SCH (10:56)
[2019-05-02] MEDS: TRIAMCINOLONE ACET 0.025% OINTMENT 15 GM TUBE TP SCH ×2 (10:57→22:01)
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
[2019-05-02] MEDS: THIAMINE HCL 100 MG TABLET (FP) PO SCH (22:01)
[2019-05-03] MEDS: PRENATAL VITAMINS W/ FOLIC ACID TABLET (FP) PO SCH (11:58)
[2019-05-03] MEDS: PANTOPRAZOLE 40 MG TABLET (FP) PO SCH (11:58)
[2019-05-03] MEDS: ELVITEG/COB/EMTRI/TENOF (GENVOYA) TABLET (NF) PO SCH (11:58)
[2019-05-03] MEDS: TRIAMCINOLONE ACET 0.025% OINTMENT 15 GM TUBE TP SCH ×2 (11:59→22:08)
--- NOTE | 2019-05-03 15:01 | PN ---
[facility] Progress Note Note: Discharge for today was cancelled per pt's counselor's information in coordination with referral source re:aftercare arrangements. Pt to stay and complete duration of treatment to enable him benefit from sobriety for next level of care at next treatment program. Pt is scheduled to discharge on . Referrals made to [place], [place]. Pt's counselor, Jasvir Connors spoke spoke and counselled patient on plan of care. Vital signs 05/03/19 05/03/19 05/03/19 00:30 03:30 07:29 Temperature 97.3 F L Pulse Rate 71 Respiratory 18 18 18 Rate Blood Pressure 104/71 Alert o x 3 nad oob with steady gait participating in unit activities Pt is agreeable with his poc.
[2019-05-03] MEDS: THIAMINE HCL 100 MG TABLET (FP) PO SCH (22:08)
[2019-05-04] MEDS: PRENATAL VITAMINS W/ FOLIC ACID TABLET (FP) PO SCH (11:10)
[2019-05-04] MEDS: TRIAMCINOLONE ACET 0.025% OINTMENT 15 GM TUBE TP SCH (11:11)
[2019-05-04] MEDS: ELVITEG/COB/EMTRI/TENOF (GENVOYA) TABLET (NF) PO SCH (11:11)
[2019-05-04] MEDS: PANTOPRAZOLE 40 MG TABLET (FP) PO SCH (11:11)
[2019-05-04] MEDS: MAGNESIUM HYDROX 2400MG/30ML ORAL SUSPENSION 30 ML CUP PO PRN (14:42)
[2019-05-04] MEDS: THIAMINE HCL 100 MG TABLET (FP) PO SCH (22:04)
[2019-05-05] MEDS: PRENATAL VITAMINS W/ FOLIC ACID TABLET (FP) PO SCH (10:20)
[2019-05-05] MEDS: ELVITEG/COB/EMTRI/TENOF (GENVOYA) TABLET (NF) PO SCH (10:21)
[2019-05-05] MEDS: PANTOPRAZOLE 40 MG TABLET (FP) PO SCH (10:21)
[2019-05-05] MEDS: MAG HYDROX/AL HYDROX/SIMETH 30 ML UNIT-DOSE CUP PO PRN (14:53)
[2019-05-05] MEDS: THIAMINE HCL 100 MG TABLET (FP) PO SCH (21:50)
[2019-05-06] MEDS: PRENATAL VITAMINS W/ FOLIC ACID TABLET (FP) PO SCH (10:55)
[2019-05-06] MEDS: PANTOPRAZOLE 40 MG TABLET (FP) PO SCH (10:55)
[2019-05-06] MEDS: ELVITEG/COB/EMTRI/TENOF (GENVOYA) TABLET (NF) PO SCH (10:55)
[2019-05-06] MEDS: THIAMINE HCL 100 MG TABLET (FP) PO SCH (21:57)
[2019-05-07] MEDS: PRENATAL VITAMINS W/ FOLIC ACID TABLET (FP) PO SCH (10:26)
[2019-05-07] MEDS: ELVITEG/COB/EMTRI/TENOF (GENVOYA) TABLET (NF) PO SCH (10:26)
[2019-05-07] MEDS: PANTOPRAZOLE 40 MG TABLET (FP) PO SCH (10:26)
[2019-05-07] MEDS: THIAMINE HCL 100 MG TABLET (FP) PO SCH (21:36)
[2019-05-08] MEDS: PRENATAL VITAMINS W/ FOLIC ACID TABLET (FP) PO SCH (10:46)
[2019-05-08] MEDS: PANTOPRAZOLE 40 MG TABLET (FP) PO SCH (10:46)
[2019-05-08] MEDS: ELVITEG/COB/EMTRI/TENOF (GENVOYA) TABLET (NF) PO SCH (10:46)
[2019-05-08] MEDS: THIAMINE HCL 100 MG TABLET (FP) PO SCH (23:47)
[2019-05-09] MEDS: ELVITEG/COB/EMTRI/TENOF (GENVOYA) TABLET (NF) PO SCH (11:16)
[2019-05-09] MEDS: PRENATAL VITAMINS W/ FOLIC ACID TABLET (FP) PO SCH (11:16)
[2019-05-09] MEDS: PANTOPRAZOLE 40 MG TABLET (FP) PO SCH (11:18)
[2019-05-09] MEDS: COLLOIDAL OATMEAL 1 BAR EACH TP PRN (11:20)
[2019-05-09] MEDS: SELENIUM SULFIDE 2.5% LOTION 4 OZ. TP SCH (14:08)
[2019-05-09] MEDS: TRIAMCINOLONE ACET 0.025% OINTMENT 15 GM TUBE TP SCH ×2 (14:09→22:06)
[2019-05-09] MEDS: THIAMINE HCL 100 MG TABLET (FP) PO SCH (22:06)
[2019-05-10] MEDS: TRIAMCINOLONE ACET 0.025% OINTMENT 15 GM TUBE TP SCH ×2 (11:29→22:02)
[2019-05-10] MEDS: PRENATAL VITAMINS W/ FOLIC ACID TABLET (FP) PO SCH (11:29)
[2019-05-10] MEDS: PANTOPRAZOLE 40 MG TABLET (FP) PO SCH (11:29)
[2019-05-10] MEDS: ELVITEG/COB/EMTRI/TENOF (GENVOYA) TABLET (NF) PO SCH (11:29)
[2019-05-10] MEDS: SELENIUM SULFIDE 2.5% LOTION 4 OZ. TP SCH (11:30)
[2019-05-10] MEDS: hydrOXYzine PAMOATE 50 MG CAPSULE (FP) PO PRN (12:46)
[2019-05-10] MEDS: IBUPROFEN 400 MG TABLET (FP) PO PRN (12:46)
[2019-05-10] MEDS: THIAMINE HCL 100 MG TABLET (FP) PO SCH (22:02)
[2019-05-11] MEDS: PANTOPRAZOLE 40 MG TABLET (FP) PO SCH (11:25)
[2019-05-11] MEDS: PRENATAL VITAMINS W/ FOLIC ACID TABLET (FP) PO SCH (11:25)
[2019-05-11] MEDS: SELENIUM SULFIDE 2.5% LOTION 4 OZ. TP SCH (11:26)
[2019-05-11] MEDS: TRIAMCINOLONE ACET 0.025% OINTMENT 15 GM TUBE TP SCH ×2 (11:26→22:02)
[2019-05-11] MEDS: ELVITEG/COB/EMTRI/TENOF (GENVOYA) TABLET (NF) PO SCH (11:26)
[2019-05-11] MEDS: MAGNESIUM HYDROX 2400MG/30ML ORAL SUSPENSION 30 ML CUP PO PRN (22:02)
[2019-05-11] MEDS: THIAMINE HCL 100 MG TABLET (FP) PO SCH (22:03)
[2019-05-12] MEDS: TRIAMCINOLONE ACET 0.025% OINTMENT 15 GM TUBE TP SCH ×2 (10:55→22:18)
[2019-05-12] MEDS: ELVITEG/COB/EMTRI/TENOF (GENVOYA) TABLET (NF) PO SCH (10:55)
[2019-05-12] MEDS: PANTOPRAZOLE 40 MG TABLET (FP) PO SCH (10:55)
[2019-05-12] MEDS: PRENATAL VITAMINS W/ FOLIC ACID TABLET (FP) PO SCH (10:55)
[2019-05-12] MEDS: SELENIUM SULFIDE 2.5% LOTION 4 OZ. TP SCH (10:55)
[2019-05-12] MEDS: THIAMINE HCL 100 MG TABLET (FP) PO SCH (22:18)
[2019-05-13 07:17] VITALS: BP 134/89; PULSE 71; TEMP 97.8
--- NOTE | 2019-05-13 09:26 | DS ---
[facility] Rehab Discharge Summary - [facility] Rehab Discharge Summary Admission Date: 04/14/19 Discharge Date: 05/13/19 - History Present History: Alcohol dependence, Cannabis dependence Additional Comments: Pt is a 44 y/o male with a hx of TIGRE admitted to rehab and requesting for early discharge today. Pt has been referred to [facility] for CD aftercare and primary care management. Pt reported he receives primary care / I.D clinic @ [facility] on [address] [place] [address]. Reports he has a Primary care provider Dr. Negin Romero at the location. Pertinent Past History: Chronic Eczema HIV+ GERD Mood Disorder - Discharge Physical Exam Vital Signs: Vital Signs Temperature 97.8 F 05/13/19 07:16 Pulse Rate 71 05/13/19 07:16 Respiratory Rate 18 05/13/19 07:16 Blood Pressure 134/89 05/13/19 07:16 O2 Sat by Pulse Oximetry (%) Alert o x 3 nad oob ambulating with steady gait cardiac:s1 s2, rrr lungs:cta,jayant. abdomen:soft,+bs,nt,++fatty extremities/skin:no edema,full ROM/weight bearing,skin intact, eczema rash responded to cream therapy. Pertinent Admission Physical Exam Findings: Laboratory Tests 04/15/19 04/15/19 04/15/19 08:00 08:00 08:00 WBC 2.4 L RBC 4.19 Hgb 12.5 Hct 36.8 MCV 87.9 MCH 29.9 MCHC 34.0 RDW 14.5 Plt Count 216 MPV 7.8 Sodium 140 Potassium 3.5 Chloride 105 Carbon Dioxide 28 Anion Gap 7 L BUN 7.7 Creatinine 1.2 Est GFR (CKD-EPI)AfAm 85.92 Est GFR (CKD-EPI)NonAf 74.14 Random Glucose 107 H Calcium 8.5 Total Bilirubin 0.5 AST 24 ALT 21 Alkaline Phosphatase 59 Total Protein 6.7 Albumin 3.6 RPR Titer Nonreactive - Treatment Discharge Condition: Discharge condition good Hospital Course: rehabilitated safely and responded well CD aftercare referral accepted - Medication Discharge Medications: Ambulatory Orders Elviteg/Cob/Emtri/Tenof Alafen [Genvoya Tablet] 1 each PO DAILY 12/01/18 Fexofenadine HCl [Emerald Allergy] 180 mg PO DAILY 12/01/18 Omeprazole 40 mg PO DAILY 12/01/18 - Medication-Assisted Treatment (MAT) Medication-Assisted Treatment (MAT): No - Discharge Instructions Diet, activity, other medical instructions: Diet:Regular Activity: oob ad lori Other medical instructions:Follow up with CD aftercare recommendatons as sceduled. Follw up with [facility] care for medical management of your comorbid conditions withi 1-2 weeks after discharge. - Diagnosis (1) Alcohol dependence Status: Chronic Qualifiers: Substance use status: uncomplicated Qualified Code(s): F10.20 - Alcohol dependence, uncomplicated (2) Cocaine dependence Status: Chronic Qualifiers: Substance use status: uncomplicated Qualified Code(s): F14.20 - Cocaine dependence, uncomplicated (3) Opioid dependence Status: Chronic Qualifiers: Substance use status: uncomplicated Qualified Code(s): F11.20 - Opioid dependence, uncomplicated (4) GERD (gastroesophageal reflux disease) Status: Chronic Qualifiers: Esophagitis presence: esophagitis presence not specified Qualified Code(s) : K21.9 - Gastro-esophageal reflux disease without esophagitis (5) HIV (human immunodeficiency virus infection) Status: Chronic Qualifiers: HIV symptom status: unspecified Qualified Code(s): B20 - Human immunodeficiency virus [HIV] disease (6) Nicotine dependence Status: Chronic Qualifiers: Nicotine product type: cigarettes Substance use status: uncomplicated Qualified Code(s): F17.210 - Nicotine dependence, cigarettes, uncomplicated (7) Chronic eczema Status: Chronic - Follow-up Referral Minutes to complete discharge: 25 - AMA Did Patient Leave Against Medical Advice: No Additional Comments: Pt has his medication refills at his pharmacy as confirmed with his home pharmacy by telephone. Reminded pt to pick up and delivery driver his meds at his pharmacy after discharge.
[2019-05-13] MEDS: PRENATAL VITAMINS W/ FOLIC ACID TABLET (FP) PO SCH (09:40)
[2019-05-13] MEDS: PANTOPRAZOLE 40 MG TABLET (FP) PO SCH (09:40)
[2019-05-13] MEDS: TRIAMCINOLONE ACET 0.025% OINTMENT 15 GM TUBE TP SCH (09:41)
[2019-05-13] MEDS: ELVITEG/COB/EMTRI/TENOF (GENVOYA) TABLET (NF) PO SCH (09:41)
[2019-05-13] MEDS: SELENIUM SULFIDE 2.5% LOTION 4 OZ. TP SCH (09:41)
== END 2019-05-13 09:50 | disposition home or self-care (01) | DRG 895 ==
LOC: YASAS 10:31 → Y6N 12:13 → Y5N 04-19 12:16
PROVIDERS: ADMIT Allergy & Immunology; ATTEND Allergy & Immunology
PROC: HZ2ZZZZ Detoxification Services for Substance Abuse Treatment (ICD-10-PCS; 2019-04-14)
PROC: HZ42ZZZ Group Counseling for Substance Abuse Treatment, Cognitive-Behavioral (ICD-10-PCS; principal; 2019-04-19)
DX: F10.20 Alcohol dependence, uncomplicated (principal); F11.20 Opioid dependence, uncomplicated; F14.20 Cocaine dependence, uncomplicated; F17.210 Nicotine dependence, cigarettes, uncomplicated; F31.9 Bipolar disorder, unspecified; F39 Unspecified mood [affective] disorder; F19.24 Other psychoactive substance dependence with psychoactive substance-induced mood disorder; Z21 Asymptomatic human immunodeficiency virus [HIV] infection status; K21.9 Gastro-esophageal reflux disease without esophagitis; L30.9 Dermatitis, unspecified; Z90.49 Acquired absence of other specified parts of digestive tract
CPT/HCPCS: 36415; 80053; 85027; 86593; G0008; Q2036